=== PATIENT | female | born 1945 ===

== ENCOUNTER → 2022-12-22 | Outpatient (CLI) | payer OTHER ==
[2022-12-22 10:06] LABS: Potassium 3.9 mmol/L (3.5-5.1)
[2022-12-22 10:16] LABS: Albumin 3.7 g/dL (3.4-5.0); BUN/Creatinine Ratio 16.5 (10.0-20.0); Bilirubin, Total 0.6 mg/dL (0.2-1.0); Calcium 8.8 mg/dL (8.5-10.1); Total Protein 7.8 g/dL (6.4-8.2)
== END | disposition home or self-care (01) ==
LOC: LAB 09:09
PROVIDERS: ATTEND Internal Medicine
DX: N18.31 Chronic kidney disease, stage 3a (principal); E78.5 Hyperlipidemia, unspecified; E03.9 Hypothyroidism, unspecified; E55.9 Vitamin D deficiency, unspecified; R73.9 Hyperglycemia, unspecified
CPT/HCPCS: 36415; 80053; 80061; 82306; 82550; 83036; 84436; 84443; 84480

== ENCOUNTER → 2023-04-06 | Outpatient (CLI) | payer OTHER ==
[2023-04-06 09:19] LABS: Basophils # (auto) 0.1 10 ^3/uL (0-0.2); Basophils % (auto) 1.8 % (0.0-2.0); Eosinophils # (auto) 0.2 10 ^3/uL (0-0.8); Eosinophils % (auto) 2.5 % (0.0-7.0); Hemoglobin 13.5 g/dL (12.2-16.2); Lymphocytes # (auto) 3.2 10 ^3/uL (0.4-5.4); Lymphocytes % (auto) 49.4 % (10.0-50.0); Mean Corpuscular Hemoglobin 29.1 pg (28.0-32.0); Mean Corpuscular Hgb Conc. 32.9 g/dL (32.0-36.0); Mean Corpuscular Volume 88.5 fL (80.0-100.0); Monocytes # (auto) 0.4 10 ^3/uL (0-1.3); Neutrophils # (auto) 2.6 10 ^3/uL (1.6-8.6); Neutrophils % (auto) 40.3 % (37.0-80.0); Nucleated Red Blood Cells % 0.1 %; Red Blood Cells 4.64 10^6/uL (4.0-5.20); Red Cell Distribution Width 13.9 % (11.8-14.3); White Blood Cell 6.5 10^3/uL (4.4-10.8)
[2023-04-06 09:26] LABS: Urine Bacteria NONE SEEN /hpf (None Seen); Urine Blood TRACE /uL (Negative); Urine Clarity Clear (Clear); Urine Protein, UAD 1+ (Negative); Urine Specific Gravity 1.013 (1.001-1.035); Urine Urobilinogen Normal (Negative); Urine WBC <1 /hpf (0 - 5); Urine pH 6.5 (5.0-8.0)
[2023-04-06 09:30] LABS: Urine Color Straw (Yellow)
[2023-04-06 09:40] LABS: Alanine Aminotransferase 13 U/L (7-40); Albumin 4.4 g/dL (3.2-4.8); Alkaline Phosphatase 57 U/L (46-116); Anion Gap 5.5 (5-15); Aspartate Aminotransferase 22 U/L (13-40); BUN/Creatinine Ratio 13.9 (10.0-20.0); Blood Urea Nitrogen 15 mg/dL (9-23); Calcium 9.3 mg/dL (8.5-10.1); Carbon Dioxide 28.5 mmol/L (20-30); Chloride 108 mmol/L (98-107); Cholesterol 146 mg/dL (< 200); Glucose 106 mg/dL (74-106); LDL Cholesterol 84 mg/dL (< 100); Sodium 142 mmol/L (136-145); Triglycerides 113 mg/dL (< 150); Uric Acid 4.4 mg/dL (3.1-7.8)
[2023-04-06 09:41] LABS: Bilirubin, Total 0.7 mg/dL (0.2-1.0); HDL Cholesterol 45 mg/dL (40-59); Total Protein 7.7 g/dL (5.7-8.2)
[2023-04-06 09:42] LABS: Folate (Folic Acid) 15.54 ng/mL (>5.38)
[2023-04-06 09:43] LABS: T3 Total 1.1 ng/mL (0.60-1.81)
[2023-04-06 09:44] LABS: Ferritin 62.6 ng/mL (10-291)
== END | disposition home or self-care (01) ==
LOC: LAB 08:36
PROVIDERS: ATTEND Internal Medicine
DX: Z00.01 Encounter for general adult medical examination with abnormal findings (principal); I12.9 Hypertensive chronic kidney disease with stage 1 through stage 4 chronic kidney disease, or unspecified chronic kidney disease; R73.9 Hyperglycemia, unspecified; M17.9 Osteoarthritis of knee, unspecified; E78.5 Hyperlipidemia, unspecified; E03.9 Hypothyroidism, unspecified
CPT/HCPCS: 36415; 80053; 80061; 81001; 82043; 82306; 82607; 82728; 82746; 83036; 83540; 84436; 84443; 84480; 84550; 85025; 87086

== ENCOUNTER → 2023-08-04 | Outpatient (CLI) | payer OTHER ==
[2023-08-04 09:01] LABS: Alanine Aminotransferase 13 U/L (7-40); Albumin 4.1 g/dL (3.2-4.8); Alkaline Phosphatase 48 U/L (46-116); Anion Gap 8 (5-15); Aspartate Aminotransferase 18 U/L (13-40); BUN/Creatinine Ratio 14.4 (10.0-20.0); Blood Urea Nitrogen 15 mg/dL (9-23); Calcium 9.1 mg/dL (8.5-10.1); Carbon Dioxide 26 mmol/L (20-30); Chloride 110 mmol/L (98-107); Glucose 102 mg/dL (74-106); LDL Cholesterol 71 mg/dL (< 100); Potassium 4.4 mmol/L (3.5-5.1); Sodium 144 mmol/L (136-145); Triglycerides 136 mg/dL (< 150)
[2023-08-04 09:02] LABS: Bilirubin, Total 0.7 mg/dL (0.2-1.0); Cholesterol 139 mg/dL (< 200); Creatine Kinase IFCC 180 U/L (34-145); HDL Cholesterol 48 mg/dL (40-59); Total Protein 6.9 g/dL (5.7-8.2)
== END | disposition home or self-care (01) ==
LOC: LAB 08:10
PROVIDERS: ATTEND Internal Medicine
DX: R93.5 Abnormal findings on diagnostic imaging of other abdominal regions, including retroperitoneum (principal); R73.9 Hyperglycemia, unspecified; E78.5 Hyperlipidemia, unspecified
CPT/HCPCS: 36415; 80053; 80061; 82043; 82550; 83036

== ENCOUNTER → 2023-12-08 | Outpatient (CLI) | payer OTHER ==
[2023-12-08 07:57] LABS: Albumin 4.4 g/dL (3.2-4.8); Alkaline Phosphatase 40 U/L (46-116); Anion Gap 8 (5-15); Bilirubin, Total 0.7 mg/dL (0.2-1.0); Blood Urea Nitrogen 23 mg/dL (9-23); Calcium 8.8 mg/dL (8.5-10.1); Carbon Dioxide 28 mmol/L (20-30); Chloride 105 mmol/L (98-107); Cholesterol 173 mg/dL (< 200); Glucose 114 mg/dL (74-106); HDL Cholesterol 47 mg/dL (40-59); LDL Cholesterol 92 mg/dL (< 100); Potassium 3.6 mmol/L (3.5-5.1); Sodium 141 mmol/L (136-145); Triglycerides 203 mg/dL (< 150)
[2023-12-08 07:58] LABS: Total Protein 7.7 g/dL (5.7-8.2)
[2023-12-08 08:05] LABS: Alanine Aminotransferase < 9 U/L (7-40); Aspartate Aminotransferase 24 U/L (13-40)
== END | disposition home or self-care (01) ==
LOC: LAB 06:33
PROVIDERS: ATTEND Internal Medicine
DX: E03.9 Hypothyroidism, unspecified (principal); E55.9 Vitamin D deficiency, unspecified; E78.5 Hyperlipidemia, unspecified
CPT/HCPCS: 36415; 80053; 80061; 82306; 84436; 84443; 84480

== ENCOUNTER → 2024-06-21 | Outpatient (CLI) | payer OTHER ==
[2024-06-21 08:57] LABS: Alanine Aminotransferase 14 U/L (7-40); Albumin 4.4 g/dL (3.2-4.8); Alkaline Phosphatase 44 U/L (46-116); Anion Gap 10 (5-15); Aspartate Aminotransferase 18 U/L (13-40); BUN/Creatinine Ratio 20.7 (10.0-20.0); Bilirubin, Total 0.5 mg/dL (0.2-1.0); Blood Urea Nitrogen 23 mg/dL (9-23); Carbon Dioxide 30 mmol/L (20-31); Chloride 104 mmol/L (98-107); Cholesterol 179 mg/dL (< 200); Creatine Kinase IFCC 234 U/L (34-145); Glucose 102 mg/dL (74-106); HDL Cholesterol 45 mg/dL (40-59); LDL Cholesterol 101 mg/dL (< 100); Potassium 3.4 mmol/L (3.5-5.1); Sodium 144 mmol/L (136-145); Total Protein 7.6 g/dL (5.7-8.2); Triglycerides 143 mg/dL (< 150)
== END | disposition home or self-care (01) ==
LOC: LAB 07:42
PROVIDERS: ATTEND Internal Medicine
DX: I12.9 Hypertensive chronic kidney disease with stage 1 through stage 4 chronic kidney disease, or unspecified chronic kidney disease (principal); N18.31 Chronic kidney disease, stage 3a; E78.5 Hyperlipidemia, unspecified; E03.9 Hypothyroidism, unspecified; E79.9 Disorder of purine and pyrimidine metabolism, unspecified
CPT/HCPCS: 36415; 80053; 80061; 82043; 82306; 82550; 83036; 84436; 84443

== ENCOUNTER 2025-03-19 07:36 | Outpatient (CLI) | payer OTHER ==
[2025-03-19 08:58] LABS: Alanine Aminotransferase 10 U/L (7-40); Alkaline Phosphatase 64 U/L (46-116); Anion Gap 11 (5-15); BUN/Creatinine Ratio 15.4 (10.0-20.0); Blood Urea Nitrogen 20 mg/dL (9-23); Calcium 9.5 mg/dL (8.7-10.4); Chloride 101 mmol/L (98-107); Sodium 143 mmol/L (136-145); Total Protein 8.1 g/dL (5.7-8.2); Triglycerides 119 mg/dL (< 150)
[2025-03-19 08:59] LABS: Bilirubin, Total 0.8 mg/dL (0.2-1.0); Cholesterol 158 mg/dL (< 200); HDL Cholesterol 45 mg/dL (40-59)
[2025-03-19 09:01] LABS: Albumin 4.8 g/dL (3.2-4.8); Carbon Dioxide 31 mmol/L (20-31); Creatine Kinase IFCC 209 U/L (34-145); Glucose 107 mg/dL (74-106); Potassium 3.4 mmol/L (3.5-5.1)
== END 2025-03-19 17:00 | disposition home or self-care (01) ==
LOC: LAB 07:36
PROVIDERS: ATTEND Internal Medicine
DX: E03.9 Hypothyroidism, unspecified (principal); E78.5 Hyperlipidemia, unspecified; R73.9 Hyperglycemia, unspecified
CPT/HCPCS: 36415; 80053; 80061; 82043; 82550; 83036; 84436; 84443

== ENCOUNTER 2025-06-28 07:50 | Outpatient (CLI) | payer OTHER ==
[2025-06-28 08:09] LABS: Hematocrit 40.2 % (36.0-46.0); Hemoglobin 13.3 g/dL (12.2-16.2); Mean Corpuscular Hemoglobin 28.6 pg (28.0-32.0); Mean Corpuscular Volume 86.3 fL (80.0-100.0); Nucleated Red Blood Cells % 0.1 %
[2025-06-28 09:26] LABS: Alanine Aminotransferase 13 U/L (7-40); Alkaline Phosphatase 59 U/L (46-116); Anion Gap 11 (5-15); BUN/Creatinine Ratio 18.3 (10.0-20.0); Blood Urea Nitrogen 21 mg/dL (9-23); Calcium 9.5 mg/dL (8.7-10.4); Carbon Dioxide 29 mmol/L (20-31); Chloride 103 mmol/L (98-107); Glucose 105 mg/dL (74-106); Sodium 143 mmol/L (136-145)
[2025-06-28 09:27] LABS: Total Protein 8.0 g/dL (5.7-8.2)
[2025-06-28 09:28] LABS: Albumin 4.5 g/dL (3.2-4.8); Potassium 3.5 mmol/L (3.5-5.1)
[2025-06-28 09:29] LABS: Bilirubin, Total 0.6 mg/dL (0.2-1.0)
[2025-06-28 12:42] LABS: Cholesterol 164 mg/dL (< 200); HDL Cholesterol 44 mg/dL (40-59)
[2025-06-28 12:56] LABS: Triglycerides 175 mg/dL (< 150)
[2025-06-28 12:58] LABS: Creatine Kinase IFCC 231 U/L (34-145)
== END 2025-06-28 17:00 | disposition home or self-care (01) ==
LOC: LAB 07:50
PROVIDERS: ATTEND Internal Medicine
DX: E11.22 Type 2 diabetes mellitus with diabetic chronic kidney disease (principal); E03.9 Hypothyroidism, unspecified; E78.5 Hyperlipidemia, unspecified; D64.9 Anemia, unspecified; M81.0 Age-related osteoporosis without current pathological fracture; N18.9 Chronic kidney disease, unspecified
CPT/HCPCS: 36415; 80053; 80061; 82043; 82306; 82550; 83036; 84436; 84443; 84480; 85025